=== PATIENT | male | born 1995 | race Caucasian/White ===

== ENCOUNTER 2019-02-23 12:59 | Emergency (ER) | payer OTHER ==
[2019-02-23] MEDS ORDERED: Ketorolac Tromethamine 60 MG/2 ML VIAL ONE (13:36)
== END 2019-02-23 13:55 | disposition home or self-care (01) ==
LOC: ERS 12:59
DX: S16.1XXA Strain of muscle, fascia and tendon at neck level, initial encounter (principal); F43.10 Post-traumatic stress disorder, unspecified; F32.9 Major depressive disorder, single episode, unspecified; F41.9 Anxiety disorder, unspecified; Z87.891 Personal history of nicotine dependence; X50.1XXA Overexertion from prolonged static or awkward postures, initial encounter
CPT/HCPCS: 96372; J1885